=== PATIENT | male | born 1970 | race American Indian/Alaskan Native ===

== ENCOUNTER 2018-04-28 18:02 | Emergency (ER) | payer SELFPAY ==
[2018-04-28 18:02] VITALS: BMI 35.6
[2018-04-28 18:06] VITALS: BP 147/82; PULSE 78; RESP 20; TEMP 98.4; O2SAT 99
[2018-04-28] MEDS ORDERED: Amoxicillin-Clav 875-125 mg Tab PO STA (18:39)
[2018-04-28] MEDS ORDERED: Amoxicillin-Clav 875-125 mg Tab PO ONE (18:53)
--- NOTE | 2018-04-28 19:02 | C.PDOC ---
History Of Present Illness 47 y/o male presents to the ER complaining of right earache which has been present for the past 3 days. Patient states that he used ear drops without relief. Patient reports that he was recently sick with flu like symptoms. Denies having ear discharge, fever, and chills. Time Seen by Provider: 04/28/18 18:11 Chief Complaint (Nursing): ENT Problem History Per: Patient History/Exam Limitations: None Onset/Duration Of Symptoms: Days Current Symptoms Are (Timing): Still Present Severity: Moderate Past Medical History Reviewed: Historical Data, Nursing Documentation, Vital Signs Vital Signs: Last Vital Signs Temp 98.4 F 04/28/18 18:04 Pulse 78 04/28/18 18:04 Resp 20 04/28/18 18:04 BP 147/82 04/28/18 18:04 Pulse Ox 99 04/28/18 18:04 - Medical History PMH: No Chronic Diseases Surgical History: No Surg Hx - [facility] Procedures APPLICATION OF SPLINT (03/05/13) Family History: States: No Known Family Hx - Social History Hx Tobacco Use: No Hx Alcohol Use: Yes Hx Substance Use: No - Immunization History Hx Tetanus Toxoid Vaccination: Yes Hx Influenza Vaccination: Yes Hx Pneumococcal Vaccination: Yes Review Of Systems Except As Marked, All Systems Reviewed And Found Negative. Constitutional: Negative for: Fever, Chills ENT: Positive for: Ear Pain (right ear pain). Negative for: Ear Discharge Physical Exam - Physical Exam Appears: Non-toxic, No Acute Distress Skin: Normal Color, Warm, Dry Head: Atraumatic, Normacephalic Eye(s): bilateral: Normal Inspection Ear(s): Left: Normal, Right: Other (TM erythema, edema and tenderness to external canal) Nose: Normal Oral Mucosa: Moist Neck: Supple Chest: Symmetrical Cardiovascular: Rhythm Regular Respiratory: Normal Breath Sounds, No Rales, No Rhonchi, No Wheezing Neurological/Psych: Oriented x3, Normal Speech ED Course And Treatment O2 Sat by Pulse Oximetry: 99 (RA) Pulse Ox Interpretation: Normal Medical Decision Making Medical Decision Making: Plan: --Augmentin PO --Motrin PO Disposition - Disposition Referrals: Jed Day MD [Staff Provider] - Disposition: HOME/ ROUTINE Disposition Time: 19:02 Condition: GOOD Additional Instructions: Follow up with the medical doctor within 1-2 days. Return if worsened. Prescriptions: Amoxicillin/Clavulanate [Augmentin 875 MG-125 MG] 1 tab PO BID #14 tab Ibuprofen [Motrin] 600 mg PO TID #21 tab Neomycin/Polymyxin/Hydrocortis [Cortisporin Otic Susp] 3 drop TOP TID #1 bottle Instructions: Outer Ear Infection (DC) Forms: [facility] (Greek) - Clinical Impression Clinical Impression: Otitis externa, Otitis media - PA / FIRE INSPECTOR / Resident Statement MD/DO has reviewed & agrees with the documentation as recorded. - Scribe Statement The provider has reviewed the documentation as recorded by the Scribe Magen Wiseman Provider Attestation All medical record entries made by the Marva were at my direction and personally dictated by me. I have reviewed the chart and agree that the record accurately reflects my personal performance of the history, physical exam, medical decision making, and the department course for this patient. I have also personally directed, reviewed, and agree with the discharge instructions and disposition.
== END 2018-04-28 19:16 | disposition home or self-care (01) ==
LOC: C.ER 18:02
DX: H66.91 Otitis media, unspecified, right ear (principal); H60.91 Unspecified otitis externa, right ear